=== PATIENT | female | born 1945 | race African-American/Black ===

== ENCOUNTER 2021-06-26 18:04 | Emergency (ER) | payer MEDICARE, OTHER ==
[~2021-06-26] VITALS: Ht 162.6 cm; Wt 70.0 kg
[2021-06-26] MEDS ORDERED: ALPRAZolam 0.25 MG TABLET PO ONE (18:30)
--- NOTE | 2021-06-26 18:53 | PHYS DOC ---
Past Medical History Past Medical History: Anxiety, Asthma, High Cholesterol, Hypertension Additional Past Medical Histor: "I TAKE K+" Past Surgical History: Other Additional Past Surgical Histo: BREAST BIOPSIES Smoking Status: Never Smoker Alcohol Use: None General Adult EDM: Chief Complaint: ANXIETY/PANIC ATTACK HPI: HPI: Patient is a 75 year old female with a history of hypertension, high cholesterol, anxiety, who presents to the ED today to be evaluated for an anxiety attack. Patient states her in April 2021. She states before the passed stone she was living with her daughter and grandchildren. 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 She states when she got back to her daughter's house she felt like she could not breathe. Patient denies any chest pain. Denies any abdominal pain, nausea, vomiting, cough or congestion. She states she is fully vaccinated against COVID-19 as well as influenza. Review of Systems: Review of Systems: Constitutional: Denies fever or chills. [] Eyes: Denies change in visual acuity. [] HENT: Denies nasal congestion or sore throat. [] Respiratory: Reports shortness of breath. Denies cough Cardiovascular: Denies chest pain or edema. [] GI: Denies abdominal pain, nausea, vomiting, bloody stools or diarrhea. [] : Denies dysuria. [] Musculoskeletal: Denies back pain or joint pain. [] Integument: Denies rash. [] Neurologic: Denies headache, focal weakness or sensory changes. [] Endocrine: Denies polyuria or polydipsia. [] Lymphatic: Denies swollen glands. [] Psychiatric: Reports anxiety attack Heart Score: C/O Chest Pain: N/A Risk Factors: Risk Factors: DM, Current or recent (<one month) smoker, HTN, HLP, family history of CAD, obesity. Risk Scores: Score 0 - 3: 2.5% MACE over next 6 weeks - Discharge Home Score 4 - 6: 20.3% MACE over next 6 weeks - Admit for Clinical Observation Score 7 - 10: 72.7% MACE over next 6 weeks - Early Invasive Strategies Current Medications: Current Medications Medications (Trade) Dose Ordered Sig/Annalisa Start Time Stop Time Status Last Admin Dose Admin Alprazolam (Xanax) 0.25 mg 1X ONCE 06/26/21 18:30 06/26/21 18:33 DC 06/26/21 18:34 0.25 MG Lorazepam (Ativan Inj) 1 mg 1X ONCE 06/26/21 19:15 06/26/21 19:16 06/26/21 18:44 1 MG Allergies: Allergies: Allergies Coded Allergies Type Severity Reaction Last Updated Verified No Known Drug Allergies 06/26/21 No Physical Exam: PE: Constitutional: Well developed, well nourished, no acute distress, non-toxic appearance. [] HENT: Normocephalic, atraumatic, bilateral external ears normal, oropharynx moist, no oral exudates, nose normal. [] Eyes: PERRLA, EOMI, conjunctiva normal, no discharge. [] Neck: Normal range of motion, no tenderness, supple, no stridor. [] Cardiovascular:Heart rate regular rhythm, no murmur [] Lungs & Thorax: Bilateral breath sounds clear to auscultation [] Abdomen: Bowel sounds normal, soft, no tenderness, no masses, no pulsatile masses. [] Skin: Warm, dry, no erythema, no rash. [] Back: No tenderness, no CVA tenderness. [] Extremities: No tenderness, no cyanosis, no clubbing, ROM intact, no edema. [] Neurologic: Alert and oriented X 3, normal motor function, normal sensory function, no focal deficits noted. [] Psychologic: Flat affect, very tearful, very anxious. Current Patient Data: Vital Signs: Vital Signs Date Time Temp Pulse Resp B/P (MAP) Pulse Ox O2 Delivery O2 Flow Rate FiO2 06/26/21 18:09 99.7 105 16 169/107 (127) 100 Room Air 99.7 EKG: EKG: [] Radiology/Procedures: Radiology/Procedures: []PROCEDURE: PORTABLE CHEST 1V EXAM: CHEST 1 VIEW History: Shortness of breath COMPARISON: None available. TECHNIQUE: Single portable radiograph of the chest FINDINGS: The cardiac silhouette is unremarkable. The lungs are clear bilaterally. The costophrenic sulci are clear and well demarcated. IMPRESSION: No radiographic evidence of an acute cardiopulmonary process. Electronically signed by: Dwight Burris MD (06/26/2021 8:51 PM) [id number] DICTATED and SIGNED BY: DWIGHT BURRIS MD DATE: 06/26/[id number] 0 Course & Med Decision Making: Course & Med Decision Making Pertinent Labs and Imaging studies reviewed. (See chart for details) This is a 75-year-old female patient presenting to the ED today with an anxiety attack. See HPI. Patient arrives in the ED complaining of shortness of breath. O2 sats 100% on room air. She lost her in April 2021. Today was a very tough day because she had to go back to the house they used to live in with the and supervise installation of a security system. When she got back to her daughter's house where she has been living. Probably she became short of breath. Patient's cardiac work-up is negative for any acute findings. Dragon Disclaimer: Dragnico Disclaimer: This electronic medical record was generated, in whole or in part, using a voice recognition dictation system. Departure Departure Impression: Primary Impression: Generalized anxiety disorder with panic attacks Additional Impression: Hypokalemia Disposition: 01 HOME / SELF CARE / HOMELESS Condition: STABLE Patient Instructions: Anxiety and Panic Attacks, [id number] Additional Instructions: You have anxiety please follow up with the resources provided by PAT team and primary care doctor. Scripts Clonazepam (CLONAZEPAM ODT) 0.5 Mg Tab.rapdis 0.5 MG PO TID PRN PRN for ANXIETY / AGITATION, #15 TAB Prov: KERRI KHAN [employer] 06/26/21 KERRI KHAN [employer] Jun 26, 2021 18:53
[2021-06-26 19:01] LABS: BASO # 0.1 x10^3/uL (0.0-0.2); BASO % 1 % (0-3); EOS # 0.2 x10^3/uL (0.0-0.7); EOS % 2 % (0-3); HEMATOCRIT 42.5 % (36.0-47.0); HEMOGLOBIN 14.3 g/dL (12.0-15.5); LYMPH # 2.4 x10^3/uL (1.0-4.8); LYMPH % 33 % (24-48); MEAN CORPUSCULAR HEMOGLOBIN 29 pg (25-35); MEAN CORPUSCULAR HGB CONC 34 g/dL (31-37); MEAN CORPUSCULAR VOLUME 85 fL (79-100); MONO # 0.5 x10^3/uL (0.0-1.1); MONO % 8 % (0-9); NEUT % 56 % (31-73); PLATELET COUNT 223 x10^3/uL (140-400); RED BLOOD COUNT 5.03 x10^6/uL (3.50-5.40); RED CELL DISTRIBUTION WIDTH 13.9 % (11.5-14.5); WHITE BLOOD COUNT 7.2 x10^3/uL (4.0-11.0)
--- NOTE | 2021-06-26 19:12 | EKG ---
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
[2021-06-26 19:25] LABS: CALCIUM 8.9 mg/dL (8.5-10.1); CREATININE 1.1 mg/dL (0.6-1.0); GFR 48.6; POTASSIUM 3.2 mmol/L (3.5-5.1)
[2021-06-26 19:40] LABS: ALBUMIN 4.3 g/dL (3.4-5.0); ALBUMIN/GLOBULIN RATIO 1.2 (1.0-1.7); MAGNESIUM 2.1 mg/dL (1.8-2.4); TOTAL BILIRUBIN 0.3 mg/dL (0.2-1.0); TOTAL PROTEIN 7.8 g/dL (6.4-8.2)
--- NOTE | 2021-06-26 20:53 | RAD ---
EXAM: CHEST 1 VIEW History: Shortness of breath COMPARISON: None available. TECHNIQUE: Single portable radiograph of the chest FINDINGS: The cardiac silhouette is unremarkable. The lungs are clear bilaterally. The costophrenic sulci are clear and well demarcated. IMPRESSION: No radiographic evidence of an acute cardiopulmonary process. Electronically signed by: Dwight Burris MD (06/26/2021 8:51 PM) [id number]
[2021-06-26] MEDS ORDERED: POTASSIUM CHLORIDE 20 MEQ TABLET.ER. PO ONE (21:45)
[2021-06-26] MEDS ORDERED: CLON0.5T20 PO (21:52)
[2021-06-26 22:00] VITALS: BP 137/76
== END 2021-06-26 22:05 | disposition home or self-care (01) ==
LOC: ER 18:04
DX: F41.1 Generalized anxiety disorder (principal); F41.0 Panic disorder [episodic paroxysmal anxiety]; E87.6 Hypokalemia; J45.909 Unspecified asthma, uncomplicated; E78.00 Pure hypercholesterolemia, unspecified; I10 Essential (primary) hypertension
CPT/HCPCS: 36415; 71045; 80053; 83735; 83880; 84443; 84484; 85025; 93005; 96372; 99285; J2060